=== PATIENT | male | born 1950 | race Caucasian/White ===

== ENCOUNTER 2025-08-30 20:07 | Observation (INO) ==
[2025-08-30 20:45] LABS: Hematocrit (blood only) 43.4 % (42.0-52.0); Hemoglobin 14.1 g/dl (14.0-18.0); Immature Granulocytes # (auto) 0.02 K/uL (0.01-0.20); Immature Granulocytes % (auto) 0.3 %; Mean Corpuscular Hemoglobin 28.8 pg (25.0-34.0); Mean Corpuscular Volume 88.8 fL (80.0-100.0); Platelet Count 172 K/uL (130-400); RDW Standard Deviation 41.7 fL (36.4-46.3); Red Blood Count 4.89 M/uL (4.70-6.10); White Blood Count 6.87 K/ul (4.8-10.8)
[2025-08-30 21:04] LABS: Alanine Aminotransferase 21.0 U/L (7-52); Albumin Globulin Ratio 1.5 (0.9-2); Albumin Level 4.4 gm/dl (3.4-5.0); Alkaline Phosphatase 74.0 U/L (34-104); Anion Gap 7.0 (3-11); Bilirubin,Total 1.0 mg/dl (0.2-1.0); Blood Urea Nitrogen 21.0 mg/dl (6-23); Calcium 9.5 mg/dl (8.6-10.3); Carbon Dioxide 29.0 mmol/L (21-32); Chloride 105.0 mmol/L (98-107); Creatinine Clr Calc Pharmacy 68.0 ml/min; Globulin 2.9 gm/dl (2.5-4.0); Glucose 93.0 mg/dl (70-99(Fasting)); Magnesium 2.3 mg/dl (1.7-2.4); Potassium 4.0 mmol/L (3.5-5.1); Sodium 141.0 mmol/L (136-145); Total Protein 7.3 gm/dl (6.0-8.3)
[2025-08-30] MEDS: OPTIRAY 320 125ml IV ONE (21:05)
[2025-08-30 21:21] LABS: INR 1.0 (0.9-1.1); Partial Thromboplastin Time 25 Seconds (21-31); Prothrombin Time 10.6 Seconds (9.0-12.0)
--- NOTE | 2025-08-30 22:03 | CT Scan Report ---
Exam(s): CT HEAD Without Contrast EXAM: CT Head Without Intravenous Contrast CLINICAL HISTORY: Reason for exam: neuro deficit, acute stroke suspected. TECHNIQUE: Axial computed tomography images of the head/brain without intravenous contrast. CTDI is 12.7 mGy and DLP is 1573.71 mGy-cm. Automated exposure control was utilized for the study. A dose lowering technique was utilized adhering to the principles of ALARA. COMPARISON: No relevant prior studies available. FINDINGS: This study is limited secondary to motion artifact. Brain: Unremarkable. No hemorrhage. No significant white matter disease. No edema. Ventricles: Unremarkable. No ventriculomegaly. Bones/joints: Unremarkable. No acute fracture. Soft tissues: Unremarkable. Sinuses: Unremarkable as visualized. No acute sinusitis. Mastoid air cells: Unremarkable as visualized. No mastoid effusion. IMPRESSION: No evidence of acute intracranial pathology. Electronically signed by: Alta Wilde MD 08/30/25 22:02 PM
--- NOTE | 2025-08-30 22:12 | Emergency Department Note ---
Impression & Plan Facial droop, Arm weakness, Arm numbness ED Provider Note NAME: PATTY GREGORY Jr AGE: 74 SEX: M : 1950 ARRIVES VIA: Walk-In INFORMANT: Patient, ED PROVIDER(S): Tanna Rocha MD CHIEF COMPLAINT: Left arm tingling, weakness, facial droop HPI: This is a 74-year-old male presenting for transient left-sided arm tingling and weakness and facial droop. Patient notes that approximate 45 minutes ago patient had a under appointment an episode of left-sided arm tingling. He thought he may have been weak, he did not try to move it. He is unsure if it was actually weaker he just did not think to move it. He states he tried to speak but he had jumbled words and could not actually speak. He motion for his and within a minute his symptoms had resolved. He notes that his arm felt like it had "a funny bone injury "and when she had tingling. thought she noticed a facial droop during this episode. ROS: See above HPI for pertinent positives & negatives. A total of 10 systems reviewed and were otherwise negative. PAST MEDICAL HISTORY: See Below PAST SURGICAL HISTORY: See Below FAMILY HISTORY: See Below SOCIAL HISTORY: See Below HOME MEDICATIONS: See Below ALLERGIES: See Below VITALS: See Below PHYSICAL EXAMINATION: General: resting comfortably in no acute distress Head: Normocephalic and atraumatic Eyes: Normal inspection, extraocular muscles intact Ear, nose, throat: Normal external exam Neck: Normal range of motion Respiratory: lungs clear to auscultation bilaterally Cardiovascular: Regular rate/rhythm, no murmur GI: soft, nontender, no guarding or rebound Extremities: nontender, moves all extremities Neuro: The patient awake and alert, appropriately conversive, no focal deficits, symmetric faces, cranial 2-12 intact, no dysmetria, no motor drift Skin: Warm, dry, and intact MEDICAL DECISION MAKING: This is a 74-year-old male presented for transient left-sided arm tingling, weakness and facial droop. Patient had a 1 minute episode of the symptoms. No current NIH is 0, no cranial nerve deficits. Overall well-appearing. Concern for TIA clinically. - Will do screening stroke workup at this time As well as basic blood work - Bloodwork is reviewed showing no significant leukocytosis, anemia, electrolyte or creatinine abnormality -CT imaging currently negative -Due to symptoms, will need for further TIA workup including MRI - Care discussed with Dr. Barragan for admission Differential diagnosis: Stroke, TIA, syncope, dehydration Independent History obtained from: Diagnostics interpreted by me: ECG: None Cardiac Monitoring: An order was placed for continuous cardiac monitoring. The monitor shows a rate of 57 with sinus rhythm. Past Med/Surg History Problem List (Updated 08/30/25 @ 23:25 by Tanna Rocha MD) Arm numbness (Acute) Arm weakness (Acute) Facial droop (Acute) Mild mitral regurgitation Aortic dilatation Encounter for pre-operative examination Hyperlipidemia [facility] [place] diet Health care maintenance Left anterior fascicular block Medical History Arthritis Hyperlipidemia History of COVID-19 Moderate mitral regurgitation TSH elevation Elevated coronary artery calcium score Ascending aorta dilatation Nonrheumatic mitral valve regurgitation Surgical History History of colonoscopy History of tooth extraction Hx of hemorrhoidectomy Hx of tonsillectomy Family History Brother Myocardial infarction Father Myocardial infarction Other Coronary heart disease Hypertension No family history of adverse response to anesthesia Denies family history of Ovarian cancer Prostate cancer Breast cancer Colorectal cancer Social History Smoking Status: Never smoker Second Hand Exposure: No; Hx Alcohol Use: Yes Alcohol type: beer, wine and hard liquor Alcohol Intake Frequency Comment: daily Hx Substance Use: No Preferred Language: Bruneian Communication Ability: Effective Visual Impairment: No Limitations Hearing Ability: Use of Hearing Aid Tag Stringer Required: No Beliefs That Will Affect Care: None marital status: Current Living Situation: Spouse current occupational status: retired Feels Safe at Home: Yes Childhood Exposure to Second-Hand Smoke: No caffeine: Yes Dental Care, Regularly: Yes Physical Activity Frequency: Daily Seatbelt Use: always Sunscreen Use: Yes Assistive Devices: Glasses and Hearing Aid - Bilateral Allergies Allergies Allergy/AdvReac Type Severity Reaction Status Date / Time No Known Allergies Allergy Verified 04/17/25 10:24 Home Meds Home Medications Medication Instructions Recorded Confirmed rosuvastatin 10 mg tablet (Crestor) 10 mg PO HS 08/30/25 08/30/25 Previous Rx's Medication Instructions Recorded aspirin 81 mg tablet,delayed 81 mg PO DAILY #30 tabs 09/26/20 release multivitamin with iron 1 tab PO DAILY #30 tabs 09/26/20 Results & Data (ED) Vital Signs Vital Signs - 24 hr 08/30/25 20:08 08/30/25 20:18 08/30/25 20:30 Temperature 36.4 C L Temperature Source Oral Pulse Rate 70 64 Pulse Rate from SpO2 Sensor 65 Respiratory Rate 21 Blood Pressure 149/94 H 158/92 H Blood Pressure Mean 112 121 Pulse Oximetry 97 96 Oxygen Delivery Method Room Air Sepsis Recent Fever Within 48 Hours No Sepsis New/Unexplained Change in Mental Status No Sepsis Action Taken by Nursing No Action Required 08/30/25 20:42 08/30/25 20:45 08/30/25 20:48 Temperature Temperature Source Pulse Rate 61 60 61 Pulse Rate from SpO2 Sensor Respiratory Rate 18 19 Blood Pressure Blood Pressure Mean Pulse Oximetry Oxygen Delivery Method Sepsis Recent Fever Within 48 Hours Sepsis New/Unexplained Change in Mental Status Sepsis Action Taken by Nursing 08/30/25 21:12 08/30/25 21:12 08/30/25 21:15 Temperature Temperature Source Pulse Rate 64 Pulse Rate from SpO2 Sensor 62 Respiratory Rate 20 Blood Pressure 135/85 135/85 Blood Pressure Mean 112 112 Pulse Oximetry 97 Oxygen Delivery Method Sepsis Recent Fever Within 48 Hours Sepsis New/Unexplained Change in Mental Status Sepsis Action Taken by Nursing 08/30/25 21:24 08/30/25 21:30 08/30/25 21:30 Temperature Temperature Source Pulse Rate 59 L Pulse Rate from SpO2 Sensor 59 L Respiratory Rate 19 Blood Pressure 137/85 137/85 Blood Pressure Mean 122 122 Pulse Oximetry 97 Oxygen Delivery Method Sepsis Recent Fever Within 48 Hours Sepsis New/Unexplained Change in Mental Status Sepsis Action Taken by Nursing 08/30/25 21:30 08/30/25 21:30 08/30/25 21:45 Temperature Temperature Source Pulse Rate 59 L 57 L Pulse Rate from SpO2 Sensor 60 57 L Respiratory Rate 20 16 Blood Pressure 137/85 Blood Pressure Mean 122 Pulse Oximetry 98 97 Oxygen Delivery Method Sepsis Recent Fever Within 48 Hours Sepsis New/Unexplained Change in Mental Status Sepsis Action Taken by Nursing 08/30/25 21:51 08/30/25 21:57 08/30/25 22:00 Temperature Temperature Source Pulse Rate 56 L 57 L Pulse Rate from SpO2 Sensor 56 L 57 L Respiratory Rate 17 19 Blood Pressure 136/86 Blood Pressure Mean 117 Pulse Oximetry 97 97 Oxygen Delivery Method Sepsis Recent Fever Within 48 Hours Sepsis New/Unexplained Change in Mental Status Sepsis Action Taken by Nursing Laboratory Data 08/30/25 20:22 08/30/25 20:22 Lab Results 08/30/25 08/30/25 Range/Units 20:22 20:27 WBC 6.87 (4.8-10.8) K/ul RBC 4.89 (4.70-6.10) M/uL Hgb 14.1 (14.0-18.0) g/dl POC Hgb 14.6 (14.0-18.0) g/dl Hct 43.4 (42.0-52.0) % POC Hct 43 (42-52) % MCV 88.8 (80.0-100.0) fL MCH 28.8 (25.0-34.0) pg MCHC 32.5 (32.0-36.0) g/dL RDW Std Deviation 41.7 (36.4-46.3) fL RDW Coeff of Christian 12.8 (11.5-14.5) % Plt Count 172 (130-400) K/uL MPV 11.2 (9.4-12.4) fL Immature Gran % (Auto) 0.3 % Neut % (Auto) 48.2 % Lymph % (Auto) 39.2 % Holmes % (Auto) 9.9 % Eos % (Auto) 2.3 % Baso % (Auto) 0.1 % Neut # (Auto) 3.31 (1.40-6.50) K/uL Lymph # (Auto) 2.69 (1.20-3.40) K/uL Holmes # (Auto) 0.68 H (0.11-0.59) K/uL Eos # (Auto) 0.16 (0.00-0.50) K/uL Baso # (Auto) 0.01 (0.00-0.20) K/uL Immature Gran # (Auto) 0.02 (0.01-0.20) K/uL PT 10.6 (9.0-12.0) Seconds INR 1.0 (0.9-1.1) APTT 25 (21-31) Seconds PTT Ratio 0.9 POC Sodium 141 (135-144) mmol/L Sodium 141 (136-145) mmol/L POC Potassium 4.0 (3.3-5.0) mmol/L Potassium 4.0 (3.5-5.1) mmol/L POC Chloride 105 (101-112) mmol/L Chloride 105 (98-107) mmol/L Carbon Dioxide 29 (21-32) mmol/L POC Total CO2 27 (24-31) mmol/L Anion Gap 7 (3-11) POC Anion Gap 14.0 L (16-25) mmol/L POC BUN 22 H (7-18) mg/dl BUN 21 (6-23) mg/dl Creatinine 1.18 (0.6-1.4) mg/dl POC Creatinine 1.3 (0.6-1.3) mg/dl Est Cr Clr Drug Dosing 68.0 ml/min eGFR 65.56 BUN/Creatinine Ratio 17.8 (10-20) Glucose 93 (70-99(Fasting)) mg/dl POC Glucose (other) 93 (70-99) mg/dl Calcium 9.5 (8.6-10.3) mg/dl POC Ioniz Calcium Yeimy 1.21 (1.12-1.32) mmol/l Magnesium 2.3 (1.7-2.4) mg/dl Total Bilirubin 1.0 (0.2-1.0) mg/dl AST 25 (13-39) U/L ALT 21 (7-52) U/L Alkaline Phosphatase 74 (34-104) U/L Troponin I High Sens 4.4 (0-20) pg/ml Total Protein 7.3 (6.0-8.3) gm/dl Albumin 4.4 (3.4-5.0) gm/dl Globulin 2.9 (2.5-4.0) gm/dl Albumin/Globulin Ratio 1.5 (0.9-2) Administered Medications Discontinued Medications Ioversol (Optiray 320 125ml) 118 ml IV ONCE ONE Stop: 08/30/25 21:06 Last Admin: 08/30/25 21:05 Dose: 118 ml Documented By: EDK Imaging Data Radiologist's Impression: Head CT 08/30/25 20:26 Exam(s): CT HEAD Without Contrast EXAM: CT Head Without Intravenous Contrast CLINICAL HISTORY: Reason for exam: neuro deficit, acute stroke suspected. TECHNIQUE: Axial computed tomography images of the head/brain without intravenous contrast. CTDI is 12.7 mGy and DLP is 1573.71 mGy-cm. Automated exposure control was utilized for the study. A dose lowering technique was utilized adhering to the principles of ALARA. COMPARISON: No relevant prior studies available. FINDINGS: This study is limited secondary to motion artifact. Brain: Unremarkable. No hemorrhage. No significant white matter disease. No edema. Ventricles: Unremarkable. No ventriculomegaly. Bones/joints: Unremarkable. No acute fracture. Soft tissues: Unremarkable. Sinuses: Unremarkable as visualized. No acute sinusitis. Mastoid air cells: Unremarkable as visualized. No mastoid effusion. IMPRESSION: No evidence of acute intracranial pathology. Electronically signed by: Alta Wilde MD 08/30/25 22:02 PM Head CTA 08/30/25 20:26 Exam(s): CTA HEAD With Contrast IV Amt: 118ML OPTIRAY 320 EXAM: CT Angiography Head With Intravenous Contrast CLINICAL HISTORY: Reason for exam: neuro deficit, acute stroke suspected. TECHNIQUE: Axial computed tomographic angiography images of the head with intravenous contrast. CTDI is 12.7 mGy and DLP is 1573.71 mGy-cm. Automated exposure control was utilized for the study. A dose lowering technique was utilized adhering to the principles of ALARA. 3D and MIP reconstructed images were created and reviewed. CONTRAST: Patient received 118ML OPTIRAY 320 of IV contrast COMPARISON: No relevant prior studies available. FINDINGS: The dural venous sinuses are patent. Right internal carotid artery: No acute findings. Intracranial segment is patent with no significant stenosis. No aneurysm. Right anterior cerebral artery: Unremarkable. No occlusion or significant stenosis. No aneurysm. Right middle cerebral artery: Unremarkable. No occlusion or significant stenosis. No aneurysm. Right posterior cerebral artery: Unremarkable. No occlusion or significant stenosis. No aneurysm. Right vertebral artery: Unremarkable as visualized. Left internal carotid artery: No acute findings. Intracranial segment is patent with no significant stenosis. No aneurysm. Left anterior cerebral artery: Unremarkable. No occlusion or significant stenosis. No aneurysm. Left middle cerebral artery: Unremarkable. No occlusion or significant stenosis. No aneurysm. Left posterior cerebral artery: Unremarkable. No occlusion or significant stenosis. No aneurysm. Left vertebral artery: Unremarkable as visualized. Basilar artery: Unremarkable. No occlusion or significant stenosis. No aneurysm. IMPRESSION: Negative CT angiogram of the head. Electronically signed by: Alta Wilde MD 08/30/25 22:11 PM Neck CTA 08/30/25 20:26 Exam(s): CTA NECK With Contrast IV Amt: 118ML OPTIRAY 320 EXAM: CT Angiography Head With Intravenous Contrast CLINICAL HISTORY: Reason for exam: neuro deficit, acute stroke suspected. TECHNIQUE: Axial computed tomographic angiography images of the head with intravenous contrast. CTDI is 12.7 mGy and DLP is 1573.71 mGy-cm. Automated exposure control was utilized for the study. A dose lowering technique was utilized adhering to the principles of ALARA. MIP reconstructed images were created and reviewed. CONTRAST: Patient received 118ML OPTIRAY 320 of IV contrast COMPARISON: No relevant prior studies available. FINDINGS: The dural venous sinuses are patent. Right internal carotid artery: No acute findings. Intracranial segment is patent with no significant stenosis. No aneurysm. Right anterior cerebral artery: Unremarkable. No occlusion or significant stenosis. No aneurysm. Right middle cerebral artery: Unremarkable. No occlusion or significant stenosis. No aneurysm. Right posterior cerebral artery: Unremarkable. No occlusion or significant stenosis. No aneurysm. Right vertebral artery: Unremarkable as visualized. Left internal carotid artery: No acute findings. Intracranial segment is patent with no significant stenosis. No aneurysm. Left anterior cerebral artery: Unremarkable. No occlusion or significant stenosis. No aneurysm. Left middle cerebral artery: Unremarkable. No occlusion or significant stenosis. No aneurysm. Left posterior cerebral artery: Unremarkable. No occlusion or significant stenosis. No aneurysm. Left vertebral artery: Unremarkable as visualized. Basilar artery: Unremarkable. No occlusion or significant stenosis. No aneurysm. IMPRESSION: Negative CT angiogram of the head. Electronically signed by: Alta Wilde MD 08/30/25 22:27 PM Discharge Plan Visit Data Chief Complaint: TIA Symptoms Stated Complaint: POSS TIA SX ED Provider: Tanna Rohca Discharge Problem: Facial droop, Arm weakness, Arm numbness Patient Disposition: Admitted As Inpatient Condition: Fair Forms Stand Alone Forms: [facility] Prescriptions Prescriptions: No Action multivitamin with iron Tablet 1 tab PO DAILY Qty: 30 0RF aspirin 81 mg tablet,delayed release (DR/EC) 81 mg PO DAILY Qty: 30 2RF rosuvastatin [Crestor] 10 mg tablet 10 mg PO HS Referrals Referrals: Janes Choi MD [Primary Care Provider] -
--- NOTE | 2025-08-30 22:28 | CT Scan Report ---
Exam(s): CTA NECK With Contrast IV Amt: 118ML OPTIRAY 320 EXAM: CT Angiography Head With Intravenous Contrast CLINICAL HISTORY: Reason for exam: neuro deficit, acute stroke suspected. TECHNIQUE: Axial computed tomographic angiography images of the head with intravenous contrast. CTDI is 12.7 mGy and DLP is 1573.71 mGy-cm. Automated exposure control was utilized for the study. A dose lowering technique was utilized adhering to the principles of ALARA. MIP reconstructed images were created and reviewed. CONTRAST: Patient received 118ML OPTIRAY 320 of IV contrast COMPARISON: No relevant prior studies available. FINDINGS: The dural venous sinuses are patent. Right internal carotid artery: No acute findings. Intracranial segment is patent with no significant stenosis. No aneurysm. Right anterior cerebral artery: Unremarkable. No occlusion or significant stenosis. No aneurysm. Right middle cerebral artery: Unremarkable. No occlusion or significant stenosis. No aneurysm. Right posterior cerebral artery: Unremarkable. No occlusion or significant stenosis. No aneurysm. Right vertebral artery: Unremarkable as visualized. Left internal carotid artery: No acute findings. Intracranial segment is patent with no significant stenosis. No aneurysm. Left anterior cerebral artery: Unremarkable. No occlusion or significant stenosis. No aneurysm. Left middle cerebral artery: Unremarkable. No occlusion or significant stenosis. No aneurysm. Left posterior cerebral artery: Unremarkable. No occlusion or significant stenosis. No aneurysm. Left vertebral artery: Unremarkable as visualized. Basilar artery: Unremarkable. No occlusion or significant stenosis. No aneurysm. IMPRESSION: Negative CT angiogram of the head. Electronically signed by: Alta Wilde MD 08/30/25 22:27 PM
--- NOTE | 2025-08-30 23:23 | History & Physical Report ---
Date of Service August 30, 2025 Assessment & Plan (1) TIA (transient ischemic attack): Plan: Assessment and plan below following discussion of case with ED provider and reviewing patient history/pertinent normal/abnormal diagnostic test results. TIA Presenting as transient aphasia, left facial droop, left UE weakness Possible aspirin failure ascending aorta dilatation valvular heart disease (trace AR/MR/TR, stress echo 2024) hyperlipidemia, on statin Rx OBS Admit to med/tele Neurochecks Plavix for possible aspirin failure until stroke ruled out MRI brain, TTE for stroke workup Neurology consult re: TIA DVT prophylaxis per Lovenox subcu Full code Text document was generated using [employer] voice recognition software. It may contain grammatical or spelling errors. Kindly contact undersigned for clarification of any documentation item in question. History of Present Illness Chief Complaint: Transient left facial droop, LUE weakness Primary Care Provider: Janes Choi MD History obtained from patient and records. Medical history significant for ascending aorta dilatation, valvular heart disease (trace AR/MR/TR, stress echo 2024), hyperlipidemia. Patient participated in [employer] today. Few hours ago, patient noticed left arm tingling and weakness without unusual neck pain. Patient had trouble getting words out. Left side of the face was noted to be droopy by . No headache symptoms. Compliant with home aspirin medications. Episode lasted about 45 minutes. Patient brought to ER by for evaluation due to TIA concerns.. 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 Allergies Allergy/AdvReac Type Severity Reaction Status Date / Time No Known Allergies Allergy Verified 04/17/25 10:24 Home Medications Medication Instructions Recorded Confirmed Type aspirin 81 mg tablet,delayed 81 mg PO DAILY #30 tabs 09/26/20 08/30/25 Rx release multivitamin with iron 1 tab PO DAILY #30 tabs 09/26/20 08/30/25 Rx rosuvastatin 10 mg tablet (Crestor) 10 mg PO HS 08/30/25 08/30/25 History Past Med/Surg History Problem List (Updated 08/31/25 @ 01:18 by Erasto Lynn MD) TIA (transient ischemic attack) Arm numbness (Acute) Arm weakness (Acute) Facial droop (Acute) Mild mitral regurgitation Aortic dilatation Encounter for pre-operative examination Hyperlipidemia [facility] diet Health care maintenance Left anterior fascicular block Medical History Arthritis Hyperlipidemia History of COVID-19 Moderate mitral regurgitation TSH elevation Elevated coronary artery calcium score Ascending aorta dilatation Nonrheumatic mitral valve regurgitation Surgical History History of colonoscopy History of tooth extraction Hx of hemorrhoidectomy Hx of tonsillectomy Family History Brother Myocardial infarction Father Myocardial infarction Other Coronary heart disease Hypertension No family history of adverse response to anesthesia Denies family history of Ovarian cancer Prostate cancer Breast cancer Colorectal cancer Social History Smoking Status: Never smoker Second Hand Exposure: No; Hx Alcohol Use: Yes Alcohol type: beer Alcohol Intake Frequency Comment: daily Hx Substance Use: No Preferred Language: Mohawk Communication Ability: Effective Visual Impairment: No Limitations Hearing Ability: Use of Hearing Aid Area Safety Manager Required: No Beliefs That Will Affect Care: None marital status: Current Living Situation: Spouse current occupational status: retired Feels Safe at Home: Yes Safety Concerns: Feels Safe At This Time Childhood Exposure to Second-Hand Smoke: No caffeine: Yes Dental Care, Regularly: Yes Physical Activity Frequency: Daily Seatbelt Use: always Sunscreen Use: Yes Assistive Devices: Glasses and Hearing Aid - Bilateral Review of Systems Review of Systems: As per HPI, all other systems reviewed and negative Physical Exam Physical Exam: GENERAL: Comfortable, pleasant, no respiratory distress SKIN: Normal color, warm HEENT: Bespectacled, pink palpebral conjunctivae, no ptosis, moist buccal mucosa NECK : Supple, no tenderness CHEST : CTA, no tenderness HEART : Bradycardic, no obvious murmurs ABDOMEN: Some distention, nontender EXTREMITIES : No LE swelling/tenderness, palpable pulses, no other conspicuous deformities noted NEUROLOGIC : Coherent, no facial asymmetry, MMTs BUE/BLE 5/5, negative pronator drift, no other gross focality Results & Data Results & Data Vital Signs (Past 12 Hours) Vital Signs Temp Pulse Resp BP Pulse Ox O2 Del Method 08/30/25 22:00 136/86 08/30/25 21:57 57 L 19 97 08/30/25 21:51 56 L 17 97 08/30/25 21:45 57 L 16 97 08/30/25 21:30 59 L 20 98 08/30/25 21:30 137/85 08/30/25 21:30 137/85 08/30/25 21:30 137/85 08/30/25 21:24 59 L 19 97 08/30/25 21:15 64 20 97 08/30/25 21:12 135/85 08/30/25 21:12 135/85 08/30/25 20:48 61 19 08/30/25 20:45 60 18 08/30/25 20:42 61 08/30/25 20:30 64 21 96 08/30/25 20:18 158/92 H 08/30/25 20:08 36.4 C L 70 149/94 H 97 Room Air Laboratory Results Laboratory Results WBC 6.87 K/ul (4.8-10.8) 08/30/25 20:22 RBC 4.89 M/uL (4.70-6.10) 08/30/25 20:22 Hgb 14.1 g/dl (14.0-18.0) 08/30/25 20:22 POC Hgb 14.6 g/dl (14.0-18.0) 08/30/25 20:27 Hct 43.4 % (42.0-52.0) 08/30/25 20:22 POC Hct 43 % (42-52) 08/30/25 20:27 MCV 88.8 fL (80.0-100.0) 08/30/25 20:22 MCH 28.8 pg (25.0-34.0) 08/30/25 20:22 MCHC 32.5 g/dL (32.0-36.0) 08/30/25 20:22 RDW Std Deviation 41.7 fL (36.4-46.3) 08/30/25 20:22 RDW Coeff of Christian 12.8 % (11.5-14.5) 08/30/25 20:22 Plt Count 172 K/uL (130-400) 08/30/25 20: MPV 11.2 fL (9.4-12.4) 08/30/25 20: Immature Gran % (Auto) 0.3 % 08/30/25 20: Neut % (Auto) 48.2 % 08/30/25 20: Lymph % (Auto) 39.2 % 08/30/25 20: Love % (Auto) 9.9 % 08/30/25 20: Eos % (Auto) 2.3 % 08/30/25 20: Baso % (Auto) 0.1 % 08/30/25: Neut # (Auto) 3.31 K/uL (1.40-6.50) 08/30/25 20: Lymph # (Auto) 2.69 K/uL (1.20-3.40) 08/30/25 20: Love # (Auto) 0.68 K/uL (0.11-0.59) H 08/30/25: Eos # (Auto) 0.16 K/uL (0.00-0.50) 08/30/25 20: Baso # (Auto) 0.01 K/uL (0.00-0.20) 08/30/25: Immature Gran # (Auto) 0.02 K/uL (0.01-0.20) 08/30/25 20: PT 10.6 Seconds (9.0-12.0) 08/30/25 20: INR 1.0 (0.9-1.1) 08/30/25: APTT 25 Seconds (21-31) 08/30/25 20: PTT Ratio 0.9 08/30/25 20: POC Sodium 141 mmol/L (135-144) 08/30/25 20: Sodium 141 mmol/L (136-145) 08/30/25 20: POC Potassium 4.0 mmol/L (3.3-5.0) 08/30/25 20: Potassium 4.0 mmol/L (3.5-5.1) 08/30/25 20: POC Chloride 105 mmol/L (101-112) 08/30/25 20: Chloride 105 mmol/L (98-107) 08/30/25 20:22 Carbon Dioxide 29 mmol/L (21-32) 08/30/25 20:22 POC Total CO2 27 mmol/L (24-31) 08/30/25 20:27 Anion Gap 7 (3-11) 08/30/25 20:22 POC Anion Gap 14.0 mmol/L (16-25) L 08/30/25 20:27 POC BUN 22 mg/dl (7-18) H 08/30/25 20: BUN 21 mg/dl (6-23) 08/30/25 20:22 Creatinine 1.18 mg/dl (0.6-1.4) 08/30/25 20: POC Creatinine 1.3 mg/dl (0.6-1.3) 08/30/25 20: Est Cr Clr Drug Dosing 68.0 ml/min 08/30/25 20: eGFR 65.56 08/30/25 20: BUN/Creatinine Ratio 17.8 (10-20) 08/30/25 20:22 Glucose 93 mg/dl (70-99(Fasting)) 08/30/25 20:22 POC Glucose (other) 93 mg/dl (70-99) 08/30/25 20: Calcium 9.5 mg/dl (8.6-10.3) 08/30/25 20:22 POC Ioniz Calcium Yeimy 1.21 mmol/l (1.12-1.32) 08/30/25 20: Magnesium 2.3 mg/dl (1.7-2.4) 08/30/25 20: Total Bilirubin 1.0 mg/dl (0.2-1.0) 08/30/25 20:22 AST 25 U/L (13-39) 08/30/25 20:22 ALT 21 U/L (7-52) 08/30/25 20:22 Alkaline Phosphatase 74 U/L (34-104) 08/30/25 20: Troponin I High Sens 4.4 pg/ml (0-20) 08/30/25 20:22 Total Protein 7.3 gm/dl (6.0-8.3) 08/30/25 20:22 Albumin 4.4 gm/dl (3.4-5.0) 08/30/25 20: Globulin 2.9 gm/dl (2.5-4.0) 08/30/25 20:22 Albumin/Globulin Ratio 1.5 (0.9-2) 08/30/25 20:[address] 08/30/25 20:26 Exam(s): CT HEAD Without Contrast EXAM: CT Head Without Intravenous Contrast CLINICAL HISTORY: Reason for exam: neuro deficit, acute stroke suspected. TECHNIQUE: Axial computed tomography images of the head/brain without intravenous contrast. CTDI is 12.7 mGy and DLP is 1573.71 mGy-cm. Automated exposure control was utilized for the study. A dose lowering technique was utilized adhering to the principles of ALARA. COMPARISON: No relevant prior studies available. FINDINGS: This study is limited secondary to motion artifact. Brain: Unremarkable. No hemorrhage. No significant white matter disease. No edema. Ventricles: Unremarkable. No ventriculomegaly. Bones/joints: Unremarkable. No acute fracture. Soft tissues: Unremarkable. Sinuses: Unremarkable as visualized. No acute sinusitis. Mastoid air cells: Unremarkable as visualized. No mastoid effusion. IMPRESSION: No evidence of acute intracranial pathology. Electronically signed by: Alta Wilde MD 08/30/25 22:02 PM Head CTA 08/30/25 20:26 Exam(s): CTA HEAD With Contrast IV Amt: 118ML OPTIRAY 320 EXAM: CT Angiography Head With Intravenous Contrast CLINICAL HISTORY: Reason for exam: neuro deficit, acute stroke suspected. TECHNIQUE: Axial computed tomographic angiography images of the head with intravenous contrast. CTDI is 12.7 mGy and DLP is 1573.71 mGy-cm. Automated exposure control was utilized for the study. A dose lowering technique was utilized adhering to the principles of ALARA. 3D and MIP reconstructed images were created and reviewed. CONTRAST: Patient received 118ML OPTIRAY 320 of IV contrast COMPARISON: No relevant prior studies available. FINDINGS: The dural venous sinuses are patent. Right internal carotid artery: No acute findings. Intracranial segment is patent with no significant stenosis. No aneurysm. Right anterior cerebral artery: Unremarkable. No occlusion or significant stenosis. No aneurysm. Right middle cerebral artery: Unremarkable. No occlusion or significant stenosis. No aneurysm. Right posterior cerebral artery: Unremarkable. No occlusion or significant stenosis. No aneurysm. Right vertebral artery: Unremarkable as visualized. Left internal carotid artery: No acute findings. Intracranial segment is patent with no significant stenosis. No aneurysm. Left anterior cerebral artery: Unremarkable. No occlusion or significant stenosis. No aneurysm. Left middle cerebral artery: Unremarkable. No occlusion or significant stenosis. No aneurysm. Left posterior cerebral artery: Unremarkable. No occlusion or significant stenosis. No aneurysm. Left vertebral artery: Unremarkable as visualized. Basilar artery: Unremarkable. No occlusion or significant stenosis. No aneurysm. IMPRESSION: Negative CT angiogram of the head. Electronically signed by: Alta Wilde MD 08/30/25 22:11 PM Neck CTA 08/30/25 20:26 Exam(s): CTA NECK With Contrast IV Amt: 118ML OPTIRAY 320 EXAM: CT Angiography Head With Intravenous Contrast CLINICAL HISTORY: Reason for exam: neuro deficit, acute stroke suspected. TECHNIQUE: Axial computed tomographic angiography images of the head with intravenous contrast. CTDI is 12.7 mGy and DLP is 1573.71 mGy-cm. Automated exposure control was utilized for the study. A dose lowering technique was utilized adhering to the principles of ALARA. MIP reconstructed images were created and reviewed. CONTRAST: Patient received 118ML OPTIRAY 320 of IV contrast COMPARISON: No relevant prior studies available. FINDINGS: The dural venous sinuses are patent. Right internal carotid artery: No acute findings. Intracranial segment is patent with no significant stenosis. No aneurysm. Right anterior cerebral artery: Unremarkable. No occlusion or significant stenosis. No aneurysm. Right middle cerebral artery: Unremarkable. No occlusion or significant stenosis. No aneurysm. Right posterior cerebral artery: Unremarkable. No occlusion or significant stenosis. No aneurysm. Right vertebral artery: Unremarkable as visualized. Left internal carotid artery: No acute findings. Intracranial segment is patent with no significant stenosis. No aneurysm. Left anterior cerebral artery: Unremarkable. No occlusion or significant stenosis. No aneurysm. Left middle cerebral artery: Unremarkable. No occlusion or significant stenosis. No aneurysm. Left posterior cerebral artery: Unremarkable. No occlusion or significant stenosis. No aneurysm. Left vertebral artery: Unremarkable as visualized. Basilar artery: Unremarkable. No occlusion or significant stenosis. No aneurysm. IMPRESSION: Negative CT angiogram of the head. Electronically signed by: Alta Wilde MD 08/30/25 22:27 PM Diagnostic Findings EKG as per my interpretation :Rate 60, NSR, LAD, LAFB, no ischemia
[2025-08-31] MEDS ORDERED: PHARMACIST DISCHARGE MED REC CONSULT PRN (00:04)
[2025-08-31] MEDS ORDERED: ACETAMINOPHEN 325 MG TAB PO PRN (00:06)
[2025-08-31] MEDS ORDERED: LORazepam 0.5 MG TAB PO PRN (00:06)
[2025-08-31] MEDS ORDERED: PROMETHAZINE 6.25 MG/50.25 ML BAG IV PRN (00:06)
[2025-08-31] MEDS: SODIUM CHLORIDE 0.9% 1,000 ML IV ONE (00:52)
[2025-08-31] MEDS: CLOPIDOGREL BISULFATE 75 MG TAB PO ONE (01:10)
[2025-08-31] MEDS: ROSUVASTATIN CALCIUM 10 MG TAB PO SCH (01:10)
[2025-08-31 06:10] LABS: Hematocrit (blood only) 37.8 % (42.0-52.0); Hemoglobin 13.0 g/dl (14.0-18.0); Immature Granulocytes # (auto) 0.01 K/uL (0.01-0.20); Immature Granulocytes % (auto) 0.2 %; Mean Corpuscular Hemoglobin 30.3 pg (25.0-34.0); Mean Corpuscular Volume 88.1 fL (80.0-100.0); Platelet Count 152 K/uL (130-400); RDW Standard Deviation 41.3 fL (36.4-46.3); Red Blood Count 4.29 M/uL (4.70-6.10); White Blood Count 4.90 K/ul (4.8-10.8)
[2025-08-31 06:31] LABS: Anion Gap 5.0 (3-11); Blood Urea Nitrogen 15.0 mg/dl (6-23); Calcium 8.8 mg/dl (8.6-10.3); Carbon Dioxide 29.0 mmol/L (21-32); Chloride 106.0 mmol/L (98-107); Cholesterol 116.0 mg/dl (0-200); Creatinine Clr Calc Pharmacy 80.3 ml/min; Glucose 77.0 mg/dl (70-99(Fasting)); HDL Cholesterol 63.0 mg/dl; Potassium 3.6 mmol/L (3.5-5.1); Sodium 140.0 mmol/L (136-145); Triglycerides 38.0 mg/dl (0-150)
[2025-08-31 06:46] LABS: Thyroid Stimulating Hormone 5.258 uIu/ml (0.300-4.500)
[2025-08-31 07:22] LABS: T4 Free Thyroxine 0.85 ng/dl (0.61-1.60)
[2025-08-31 07:44] LABS: Hemoglobin A1C 5.6 % (4.5-5.6)
[2025-08-31] MEDS: CEROVITE ADV FORMULA TAB PO SCH (08:53)
[2025-08-31] MEDS: ASPIRIN 81 MG ECTAB PO SCH (08:53)
[2025-08-31] MEDS: ENOXAPARIN INJ 40 MG/0.4 ML SYR SQ SCH (08:54)
[2025-08-31] MEDS ORDERED: ENOXAPARIN INJ 40 MG/0.4 ML SYR SQ SCH (09:00)
--- NOTE | 2025-08-31 10:38 | Magnetic Resonance Report ---
Clinical History: Left facial droop Technique: Multiple T1 and T2-weighted magnetic resonance images were obtained of the brain without gadolinium contrast Findings: There is no sign of acute or old infarction with normal-appearing diffusion weighted images. There is cerebral atrophy, within expected limits for the patient's age. There are small areas of increased T2 signal intensity within the periventricular white matter of the cerebral hemispheres bilaterally. This is most likely due to chronic small vessel ischemic disease. No definite mass lesion is seen on this noncontrast study. There is no intracranial hemorrhage or other fluid collection. No midline shift or other form of herniation is seen. There is no hydrocephalus. Normal flow-voids are seen within the arteries of the [id number]. The orbits and paranasal sinuses appear normal. The mastoid air cells appear clear. Impression: 1. Cerebral atrophy and mild chronic small vessel ischemic disease 2. Otherwise unremarkable noncontrast MRI of the brain Electronically signed by Wes Coronel 08-31-2025 10:38 AM
--- NOTE | 2025-08-31 11:51 | Electrocardiogram Report ---
Test Reason : Blood Pressure : */* mmHG Vent. Rate : 61 BPM Atrial Rate : 61 BPM P-R Int : 162 ms QRS Dur : 110 ms QT Int : 442 ms P-R-T Axes : 59 -24 60 degrees QTcB Int : 444 ms Normal sinus rhythm Normal ECG No previous ECGs available Confirmed by Cam El ([id number]) on 08/31/2025 11:51:11 AM Referred By: REFERRED SELF Confirmed By: Cam El
[2025-08-31 11:54] VITALS: TEMP 97.3
[2025-08-31 12:21] VITALS: PULSE 50
--- NOTE | 2025-08-31 12:30 | XCELERA ---
[id number]
--- NOTE | 2025-08-31 15:57 | Neurology Consultation ---
Date of Consultation August 31, 2025 Assessment & Plan (1) TIA (transient ischemic attack): The patient's symptoms are consistent with a true TIA. Plan Likely secondary to extracranial carotid atherosclerotic disease. Recommend aspirin 81 mg in addition to Plavix 75 mg and maximum dose statin, can maximize rosuvastatin for 21 days. The patient is to be on Plavix 75 mg and statin thereafter. Recommend a Zio patch upon discharge. Follow-up with neurology as an outpatient Telehealth Consultation Telehealth Information Telehealth Information: I performed this visit using a real-time telehealth connection between my location and the patients location ([facility]). After connecting through interactive tele-video, patient was identified by name and date of and/or wristband check.Patient (or authorized healthcare client representative) was informed that this was a telemedicine visit and it was being conducted confidentially over secure lines. My office door was closed and no one else was present in the room with me.Patient (or authorized healthcare client representative) provided consent to proceed with the visit, expressed an understanding of privacy and security of the telemedicine visit, and gave permission to have a hospital client representative in the room in order to assist with the visit and to conduct portions of the visit, as needed. I informed the patient (or authorized healthcare client representative) that I reviewed their record and presented the opportunity for them to ask any questions regarding the visit today. The patient agreed to participate. 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 It is reported that his noted some left facial droop. He has any difficulty with walking or vision. Denies any recent illnesses however he has been physically exerting himself by walking long distances playing golf over the past 2 days. He has been keeping up with hydration but no recent illnesses. Allergies Allergy/AdvReac Type Severity Reaction Status Date / Time No Known Allergies Allergy Verified 04/17/25 10:24 Home Medications Medication Instructions Recorded Confirmed Type aspirin 81 mg tablet,delayed 81 mg PO DAILY #30 tabs 09/26/20 08/30/25 Rx release multivitamin with iron 1 tab PO DAILY #30 tabs 09/26/20 08/30/25 Rx rosuvastatin 10 mg tablet (Crestor) 10 mg PO HS 08/30/25 08/30/25 History Patient History Medical History Arthritis Hyperlipidemia History of COVID-19 Moderate mitral regurgitation TSH elevation Elevated coronary artery calcium score Ascending aorta dilatation Nonrheumatic mitral valve regurgitation Surgical History History of colonoscopy History of tooth extraction Hx of hemorrhoidectomy Hx of tonsillectomy Family History Brother Myocardial infarction Father Myocardial infarction Other Coronary heart disease Hypertension No family history of adverse response to anesthesia Denies family history of Ovarian cancer Prostate cancer Breast cancer Colorectal cancer Social History Smoking Status: Never smoker Second Hand Exposure: No; Hx Alcohol Use: Yes Alcohol type: beer Alcohol Intake Frequency Comment: daily Hx Substance Use: No Preferred Language: Azeri Communication Ability: Effective Visual Impairment: No Limitations Hearing Ability: Use of Hearing Aid 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 Required: No Beliefs That Will Affect Care: None marital status: Current Living Situation: Spouse current occupational status: retired Feels Safe at Home: Yes Safety Concerns: Feels Safe At This Time Childhood Exposure to Second-Hand Smoke: No caffeine: Yes Dental Care, Regularly: Yes Physical Activity Frequency: Daily Seatbelt Use: always Sunscreen Use: Yes Assistive Devices: Glasses and Hearing Aid - Bilateral Review of Systems Constitutional: Patient denies weight loss, fever, chills, and night sweats Eyes: Patient denies change in vision, tearing, pain, and redness ENT: Patient denies pain, bleeding, rhinorrhea, and dysphagia Cardiovascular: Patient denies chest pain, palpitation, dyspnea at rest, and dyspnea with exertion Respiratory: Patient denies shortness of breath, cough, wheezing, and productive cough GI: Patient denies reflux, pain, constipation, and diarrhea Skin: Patient denies rash, dryness, and itching Allergies/Immune System: Patient denies rhinorrhea, seasonal allergies, reaction to current MEDS, and joint swelling Endocrine: Patient denies weight loss, weight gain, temperature intolerance, and excessive thirst Neurological: All negative unless mentioned in the HPI Physical Exam General Constitutional: Appearance normally developed Head and face: normocephalic and atraumatic Eyes: no ptosis, no anisocoria, and no dysconjugate gaze Respiratory: normal effort Cardiovascular: regular rhythm and regular rate Abdomen: non distended Skin: no rashes, lesions, or ulcers noted Psychiatric: normal judgement and insight, normal mood, and normal affect NEUROLOGIC EXAMINATION: Mental Status:alert, oriented to time, place, person, normal recent memory, normal remote memory, normal attention span, normal concentration, normal language and normal fund of knowledge Cranial Nerves: CN 2 - no visual defect on confrontation and pupils round, equal, reactive to light CN 3, 4, 6 - extra-ocular movements intact and no nystagmus CN 5 - facial sensation intact CN 7 - no facial asymmetry CN 8 - intact hearing CN 9, 10 - palate symmetric, normal gag CN 11 - good shoulder shrug CN 12 - tongue midline MOTOR: Strength was at least antigravity throughout, Pronator drift was absent and There were no abnormal movements SENSATION: intact and symmetric to pinprick, light touch, vibration and joint position GAIT: stable, no ataxia and can perform tandem walking COORDINATION: no ataxia with finger to nose testing and heel to brower testing REFLEXES: cannot assess over telemedicine NIH Stroke Scale: 1a. Level of Consciousness: alert = 0 1b. LOC Questions: (month, age): both correct = 0 1c. LOC Commands (open and close eyes, make fist and let go using non-paretic hand): obeys both correctly = 0 2. Best Gaze (eyes open and patient follows examiner's finger or face): normal = 0 3. Visual (visual threat or finger counting in each quadrant): no loss = 0 4. Facial Palsy (show teeth, raise eye brows and squeeze eyes shut, or grimace symmetry in a comatose patient): normal = 0 5a. Motor Arm (extend arm (palms down) to 90 degrees and score drift/movement (10 seconds) - Left: no drift = 0 5b. Motor Arm: (extend arm (palms down) to 90 degrees and score drift/movement (10 seconds) - Right: no drift = 0 6a. Motor Leg (elevate leg 30 degrees and score drift/ movement (5 seconds) - Left: no drift = 0 6b. Motor Leg (elevate leg 30 degrees and score drift/ movement (5 seconds) - Right: no drift = 0 7. Limb Ataxia (finger to nose, heel down brower): absent = 0 8. Sensory (pin prick to face, arm, trunk and leg, compare side to side): normal = 0 9. Best Language: no aphasia = 0 10. Dysarthria (evaluate speech clarity by patient repeating listed words): normal articulation = 0 11. Extinction and Inattention: no neglect = 0 Total: 0 Results & Data Vital Signs (Past 12 Hours) Vital Signs Temp Pulse Pulse Resp BP Pulse Ox O2 Del Method 08/31/25 12:19 50 L 08/31/25 11:53 36.3 C L 57 L 20 122/80 96 Room Air 08/31/25 07:17 36.6 C 61 20 112/71 95 Room Air Laboratory Results Abnormal lab results 08/30/25 08/30/25 08/31/25 Range/Units 20:22 20:27 05:23 RBC 4.29 L (4.70-6.10) M/uL Hgb 13.0 L (14.0-18.0) g/dl Hct 37.8 L (42.0-52.0) % Warrick # (Auto) 0.68 H (0.11-0.59) K/uL POC Anion Gap 14.0 L (16-25) mmol/L POC BUN 22 H (7-18) mg/dl TSH (0.300-4.500) uIu/ml 08/31/25 Range/Units 05:33 RBC (4.70-6.10) M/uL Hgb (14.0-18.0) g/dl Hct (42.0-52.0) % Warrick # (Auto) (0.11-0.59) K/uL POC Anion Gap (16-25) mmol/L POC BUN (7-18) mg/dl TSH 5.258 H (0.300-4.500) uIu/ml Laboratory Results - last 24 hr 08/30/25 08/30/25 08/30/25 20:22 20:27 22:49 WBC 6.87 RBC 4.89 Hgb 14.1 POC Hgb 14.6 Hct 43.4 POC Hct 43 MCV 88.8 MCH 28.8 MCHC 32.5 RDW Std Deviation 41.7 RDW Coeff of Christian 12.8 Plt Count 172 MPV 11.2 Immature Gran % (Auto) 0.3 Neut % (Auto) 48.2 Lymph % (Auto) 39.2 Warrick % (Auto) 9.9 Eos % (Auto) 2.3 Baso % (Auto) 0.1 Neut # (Auto) 3.31 Lymph # (Auto) 2.69 Warrick # (Auto) 0.68 H Eos # (Auto) 0.16 Baso # (Auto) 0.01 Immature Gran # (Auto) 0.02 PT 10.6 INR 1.0 APTT 25 PTT Ratio 0.9 POC Sodium 141 Sodium 141 POC Potassium 4.0 Potassium 4.0 POC Chloride 105 Chloride 105 Carbon Dioxide 29 POC Total CO2 27 Anion Gap 7 POC Anion Gap 14.0 L POC BUN 22 H BUN 21 Creatinine 1.18 POC Creatinine 1.3 Est Cr Clr Drug Dosing 68.0 eGFR 65.56 BUN/Creatinine Ratio 17.8 Glucose 93 POC Glucose (other) 93 Estimat Average Glucose Hemoglobin A1c Calcium 9.5 POC Ioniz Calcium Yeimy 1.21 Magnesium 2.3 Total Bilirubin 1.0 AST 25 ALT 21 Alkaline Phosphatase 74 Troponin I High Sens 4.4 Total Protein 7.3 Albumin 4.4 Globulin 2.9 Albumin/Globulin Ratio 1.5 Triglycerides Cholesterol LDL Cholesterol, Calc VLDL Cholesterol, Calc HDL Cholesterol Cholesterol/HDL Ratio TSH Free T4 Blood Type O Positive Antibody Screen NEGATIVE 08/31/25 08/31/25 05:23 05:33 WBC 4.90 RBC 4.29 L Hgb 13.0 L POC Hgb Hct 37.8 L POC Hct MCV 88.1 MCH 30.3 MCHC 34.4 RDW Std Deviation 41.3 RDW Coeff of Christian 12.9 Plt Count 152 MPV 11.3 Immature Gran % (Auto) 0.2 Neut % (Auto) 41.2 Lymph % (Auto) 42.9 Warrick % (Auto) 11.6 Eos % (Auto) 3.7 Baso % (Auto) 0.4 Neut # (Auto) 2.02 Lymph # (Auto) 2.10 Warrick # (Auto) 0.57 Eos # (Auto) 0.18 Baso # (Auto) 0.02 Immature Gran # (Auto) 0.01 PT INR APTT PTT Ratio POC Sodium Sodium 140 POC Potassium Potassium 3.6 POC Chloride Chloride 106 Carbon Dioxide 29 POC Total CO2 Anion Gap 5 POC Anion Gap POC BUN BUN 15 Creatinine 1.00 POC Creatinine Est Cr Clr Drug Dosing 80.3 eGFR 79.97 BUN/Creatinine Ratio 15.0 Glucose 77 POC Glucose (other) Estimat Average Glucose 114 Hemoglobin A1c 5.6 Calcium 8.8 POC Ioniz Calcium Yeimy Magnesium Total Bilirubin AST ALT Alkaline Phosphatase Troponin I High Sens Total Protein Albumin Globulin Albumin/Globulin Ratio Triglycerides 38 Cholesterol 116 LDL Cholesterol, Calc 45 VLDL Cholesterol, Calc 8 HDL Cholesterol 63 Cholesterol/HDL Ratio 1.8 TSH 5.258 H Free T4 0.85 Blood Type Antibody Screen Diagnostic Findings MRI of the brain showed no acute ischemic changes. CTA of the head and neck shows scattered atherosclerotic disease, with mild atherosclerotic plaque within the bilateral carotid bifurcations. Echocardiogram shows preserved ejection fraction with no atrial enlargement. EKG is normal sinus rhythm Medications Administered Home Medications Medication Instructions Recorded Confirmed Last Taken aspirin 81 mg tablet,delayed 81 mg PO DAILY #30 tabs 09/26/20 08/30/25 08/17/22 08:00 release multivitamin with iron 1 tab PO DAILY #30 tabs 09/26/20 08/30/25 08/17/22 08:00 rosuvastatin 10 mg tablet (Crestor) 10 mg PO HS 08/30/25 08/30/25 Unknown Active Medications Generic Name Dose Route Start Last Admin Trade Name Freq PRN Reason Stop Dose Admin Aspirin 81 mg 08/31/25 09:00 08/31/25 08:53 Aspirin 81 Mg Ectab PO 09/30/25 08:59 81 mg DAILY NED Administration Enoxaparin Sodium 40 mg 08/31/25 09:00 08/31/25 08:54 Enoxaparin Inj 40 Mg/0.4 Ml Syr SQ 09/30/25 08:59 40 mg QAM NED Administration Sodium Chloride 1,000 mls @ 60 mls/hr 08/31/25 00:06 08/31/25 00:52 Nss IV 08/31/25 16:45 60 mls/hr .[id number] Administration Multivitamins/Minerals 1 tab 08/31/25 09:00 08/31/25 08:53 Cerovite Adv Formula Tab PO 09/30/25 08:59 1 tab DAILY NED Administration Rosuvastatin Calcium 10 mg 08/31/25 00:05 08/31/25 01:10 Rosuvastatin Calcium 10 Mg Tab PO 09/30/25 00:04 10 mg HS NED Administration
[2025-08-31] MEDS ORDERED: STROKE PATIENT DISCHARGE STA (16:05)
--- NOTE | 2025-08-31 16:13 | Discharge Summary ---
Discharge Summary Date of Service August 31, 2025 Principal Dx & Hospital Course #1 = Principal Diagnosis (1) TIA (transient ischemic attack): (2) Hyperlipidemia: Plan Mr. Noriega is a very pleasant 74M with PMH including HLD, non obstructive CAD on ASA and crestor 10mg, who presents with L arm numbness and slurred speech. Patient told author symptoms lasted for less than one minute but other reports are it lasted for about ten minutes. He immediately went to the ED last night after onset of symptoms. Symptoms had completely resolved by the time he arrived. No similar symptoms in the past. CTH, CTA without acute pathology. He was admitted for possible TIA. MRI brain showing mild chronic small vessel disease, no acute infarcts. TTE essentially normal. Neuro evaluated today and diagnosed him with TIA. Since he was already on ASA, neuro recommended DAPT x 21 days, then DC ASA and continue with plavix. his Crestor was increased to 20mg. He is to call his PCP for a zio patch. He feels well today and wishes to go home. He will f/u with neurology as OP. d/w and daughter at bedside. vitals and labs stable on day of dc. Notes For Next Care Provider Medication Changes From Visit As above Admission HPI Per Admitting Provider History obtained from patient and records. Medical history significant for ascending aorta dilatation, valvular heart disease (trace AR/MR/TR, stress echo 2024), hyperlipidemia. Patient participated in [employer] today. Few hours ago, patient noticed left arm tingling and weakness without unusual neck pain. Patient had trouble getting words out. Left side of the face was noted to be droopy by . No headache symptoms. Compliant with home aspirin medications. Episode lasted about 45 minutes. Patient brought to ER by for evaluation due to TIA concerns.. 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 No obvious deformities Ext: No Edema cyanosis Skin: Warm, Dry Neuro: AOx3 No focal deficits. Psych: Normal Mood Updated Medication List Medication Instructions Recorded Confirmed Type aspirin 81 mg tablet,delayed 81 mg PO DAILY #30 tabs 09/26/20 08/30/25 Rx release multivitamin with iron 1 tab PO DAILY #30 tabs 09/26/20 08/30/25 Rx rosuvastatin 10 mg tablet (Crestor) 10 mg PO HS 08/30/25 08/30/25 History clopidogrel 75 mg tablet 75 mg PO QAM 30 days #30 tabs 08/31/25 Rx rosuvastatin 20 mg tablet (Crestor) 20 mg PO DAILY 30 days #30 tabs 08/31/25 Rx Hospital Stay Data Consultations 08/31/25 00:05 Consult Neurology Routine Diagnostic Imagining Performed 08/30/25 20:26 CT angio head w con Stat CT angio neck with con Stat CT head/brain wo con Stat 08/31/25 00:04 MR brain wo con Routine Pending Results Patient Have Any Pending Studies at Discharge: No Discharge Instructions Given to Patient (Per Discharging Provider) Take aspirin and plavix x 21 days, then stop taking aspirin and just continue plavix. increase your crestor to 20mg. please call your PCP's office for a zio patch (tube and rod straightener). Please follow up with neurologyEstefania Total Time Total Time Spent Total Time Spent (In Minutes): 45
[2025-08-31 16:19] VITALS: BP 126/85; RESP 19; O2SAT 99
[2025-09-01] MEDS ORDERED: CLOPIDOGREL BISULFATE 75 MG TAB PO SCH (09:00)
--- NOTE | 2025-09-03 14:20 | Pharmacy Report ---
Pharmacist Stroke Counseling - Date of Service September 03, 2025 - Scope: Pharmacy has been consulted to provide medication discharge counseling for this patient admitted with transient ischemic attack as per the Pharmacist Discharge Counseling for Stroke Patients Protocol. - Medications on Discharge: New Rx's Medication Instructions Recorded aspirin 81 mg tablet,delayed 81 mg PO DAILY #30 tabs 09/26/20 release multivitamin with iron 1 tab PO DAILY #30 tabs 09/26/20 clopidogrel 75 mg tablet 75 mg PO QAM 30 days #30 tabs 08/31/25 rosuvastatin 20 mg tablet (Crestor) 20 mg PO DAILY 30 days #30 tabs 08/31/25 - Action: The above medications, specifically ones for stroke treatment/prophylaxis, have been reviewed in detail with the patient and/or patient patient services representative(s) prior to discharge. This includes indication, common adverse reactions, drug interactions, and medication administration. Medication counseling has been employed using the teach-back method to ensure understanding. - Outcome: The patient and/or patient patient services representative(s) have demonstrated understanding of the medications. Additional comments: - Counseled on new Rxs for Plavix and Crestor. - Patient had all questions answered - To follow up with PCP and neurology in the next week or so Thank you for allowing pharmacy to be involved in the care of this patient. Please call [phone] with any additional questions
== END 2025-08-31 17:19 | disposition home or self-care (01) ==
LOC: ED 20:07 → 4W 20:07